=== PATIENT | male | born 1960 | race Caucasian/White ===

== ENCOUNTER 2024-10-31 11:22 | Day surgery (SDC) | payer BC ==
[~2024-10-31] VITALS: Ht 162.6 cm; Wt 116.6 kg
[~2024-10-31 11:22] MED LIST: ALLO100T PO; HYDR-3490 PO; IRBE300T25 PO; LEVO150T7 PO; METF10004 PO; MIDAZOLAM INJ 2MG/2ML VIAL As Ordered ONE; PRAV20TA2 PO; TEST200I14 SQ; fentaNYL 100 MCG/2 ML INJECTION As Ordered ONE
[2024-10-31] MEDS: LIDOCAINE 3.5 % 1ML OPHTH TOPICAL GEL OU ONE (13:18)
[2024-10-31] MEDS: POVIDONE-IODINE 5% OPHTH PREP SOL 30ML As Ordered ONE (15:50)
[2024-10-31] MEDS: LIDOCAINE 2% W/EPINEPHRINE 20ML VIAL **PRES FREE As Ordered ONE (16:03)
[2024-10-31] MEDS: TOBRADEX OPHTH OINT 3.5 GM As Ordered ONE (16:14)
[2024-10-31 16:24] VITALS: BP 165/70; TEMP 97.8; O2SAT 97
== END 2024-10-31 16:47 | disposition home or self-care (01) ==
LOC: M SDC 11:22
PROVIDERS: ATTEND Ophthalmology
DX: H02.831 Dermatochalasis of right upper eyelid (principal); H02.834 Dermatochalasis of left upper eyelid; I10 Essential (primary) hypertension; E11.9 Type 2 diabetes mellitus without complications; E03.9 Hypothyroidism, unspecified; G47.30 Sleep apnea, unspecified; Z79.84 Long term (current) use of oral hypoglycemic drugs; Z79.899 Other long term (current) drug therapy
CPT/HCPCS: 15823; 88300; J2250; J3010